=== PATIENT | female | born 1965 ===

== ENCOUNTER 2020-05-09 22:05 | Inpatient (IN) | payer MEDICAID ==
[~2020-05-09] VITALS: Ht 167.6 cm; Wt 114.0 kg
--- NOTE | 2020-05-09 22:22 | NUR ---
Pt arrives via [facility] from [facility]. Report was not given. This RN gathered information from pt and the pt's records that were left with her. Pt presents with right facial droop and right arm pronation drift and slurred speech. Pt reports these symptoms have been present since yesterday. According to records, pt got a CT scan that showed "uncertain/stroke hemorrhage"- no disk or copy of CT results brought to [place]. UTI was found at [facility] and pt was given 2g Rocephin. Pt also given lasix and morphine. Pt alert and oriented x4, acute stroke dysphagia screen passed at bedside, administered by this RN per Dr. Hawk's approval. NIH stroke scale score of 4 per this RN. Reportedly was scoring a 3 at [facility].
--- NOTE | 2020-05-09 22:26 | NUR ---
Lab at bedside.
[2020-05-09] MEDS ORDERED: SODIUM CHLORIDE FLUSH 10ML SYR IVF ONE (22:30)
--- NOTE | 2020-05-09 22:44 | NUR ---
Pt back from CT
[2020-05-09 22:54] LABS: ALANINE AMINOTRANSFERASE 30 U/L (12-78); ALBUMIN 3.2 g/dL (3.4-5.0); ANION GAP 6 mmol/L (5-15); CHLORIDE 109 mmol/L (98-107); CREATININE 0.86 mg/dL (0.55-1.02)
--- NOTE | 2020-05-09 22:59 | NUR ---
Pt hooked up to external fem cath.
[2020-05-09 23:01] LABS: ALKALINE PHOSPHATASE 127 U/L (45-117); BILIRUBIN,TOTAL 0.6 mg/dL (0.2-1.0); TOTAL PROTEIN 7.5 g/dL (6.4-8.2)
--- NOTE | 2020-05-09 23:02 | NUR ---
Pt resting, eyes closed, breathing equal and non-labored.
[2020-05-09 23:11] LABS: INTERNATIONAL NORMALIZED RATIO 1.02 (0.93-1.1); PROTHROMBIN TIME 10.9 Seconds (9.6-11.5)
[2020-05-09 23:14] LABS: MEAN CORPUSCULAR HEMOGLOBIN 32.8 pg (27.0-34.8); MEAN PLATELET VOLUME 6.7 fL (7.4-10.4); PLATELET COUNT 256 x10^3/uL (130-400); RED BLOOD COUNT 4.03 x10^6/uL (3.82-5.3); RED CELL DISTRIBUTION WIDTH 14.3 % (9.6-15.2)
[2020-05-09 23:57] LABS: MD YES
--- NOTE | 2020-05-09 23:58 | NUR ---
Pt resting, eyes closed, breathing equal and non-labored.
--- NOTE | 2020-05-09 23:58 | NUR ---
Report to DARIA Garrett.
[2020-05-10] VITALS (7 sets, daily range): BP systolic 145–169; BP diastolic 79–88
[2020-05-10 00:02] LABS: ANISOCYTOSIS 1+; BAND#(MANUAL) 0.07 x10^3/uL; BANDS%(MANUAL) 1 % (0-7); BASOS#(MANUAL) 0.07 x10^3/uL (0-0.1); BASOS% (MANUAL) 1 % (0-1); EOS% (MANUAL) 6 % (1-7); LYMPH#(MANUAL) 1.52 x10^3/uL (1-3.4); LYMPHS% (MANUAL) 23 % (22-44); MONOS#(MANUAL) 0.79 x10^3/uL (0.3-2.7); MONOS% (MANUAL) 12 % (2-9); POLYCHROMASIA 1+; REACTIVE LYMPHS # (MANUAL) 0.07 x10^3/uL (0-0); REACTIVE LYMPHS % (MANUAL) 1 % (0-0); SEGS% (MANUAL) 56 % (42-75)
[2020-05-10 00:03] LABS: <PLATELET ESTIMATE> ADEQUATE; <PLT MORPHOLOGY> NORMAL PLT MORPH; TOXIC GRAN 1+
[2020-05-10] MEDS ORDERED: PLEASE ENTER ALLERGIES MC SCH ×3 (05:00→05:30)
[2020-05-10] MEDS ORDERED: INSTRUCTION SEE COMMENTS XX ONE (05:00)
[2020-05-10] MEDS ORDERED: ENALAPRILAT 1.25 MG/ML, 2ML IV PRN (05:00)
[2020-05-10] MEDS ORDERED: LABETALOL 5MG/ML, 20ML IV PRN (05:00)
[2020-05-10] MEDS ORDERED: ACETAMINOPHEN 325 MG TABLET PO PRN (05:00)
[2020-05-10] MEDS ORDERED: POTASSIUM CHLORIDE 20 MEQ TAB.ER.PRT PO ONE ×2 (05:00→06:00)
[2020-05-10] MEDS ORDERED: ONDANSETRON 4 MG TABLET PO PRN (05:00)
[2020-05-10] MEDS ORDERED: INSULIN LISPRO 100 UNITS/ML, PEN SQ-INSULIN SCH (07:00)
[2020-05-10 07:27] LABS: FREE T4 (FREE THYROXINE) 0.1 ng/dL (0.76-1.46)
[2020-05-10] MEDS: CEFTRIAXONE PMX 2GM/50ML 50 ML IV SCH (09:27)
[2020-05-10] MEDS: INSULIN LISPRO 100 UNITS/ML, PEN SQ-INSULIN SCH ×4 (09:29→21:20)
[2020-05-10] MEDS ORDERED: LEVOTHYROXINE 100 MCG INJ IVPush ONE ×2 (12:00→12:30)
[2020-05-10] MEDS: ATORVASTATIN 40 MG TABLET PO SCH (20:44)
[2020-05-11] VITALS (7 sets, daily range): BP systolic 143–170; BP diastolic 72–92
[2020-05-11] MEDS: LEVOTHYROXINE 175 MCG TABLET PO SCH (06:06)
[2020-05-11 06:32] LABS: CHOL/HDL RATIO 3.3; LDL/HDL RATIO 1.7 (0.5-3.0)
[2020-05-11] MEDS ORDERED: MAGNESIUM HYDROXIDE 8%, 30ML UDC PO ONE (07:30)
[2020-05-11] MEDS: INSULIN LISPRO 100 UNITS/ML, PEN SQ-INSULIN SCH ×4 (08:57→20:28)
[2020-05-11] MEDS: CEFTRIAXONE PMX 2GM/50ML 50 ML IV SCH (10:29)
[2020-05-11] MEDS ORDERED: morphine SULFATE 10 MG/ML, 1ML IVPush ONE (14:30)
[2020-05-11 16:42] LABS: BASOPHILS % (AUTO) 1 % (0-1); EOSINOPHILS % (AUTO) 3 % (1-7); LYMPHOCYTES % (AUTO) 25 % (22-44); MEAN CORPUSCULAR HEMOGLOBIN 33.1 pg (27.0-34.8); MEAN PLATELET VOLUME 6.3 fL (7.4-10.4); MONOCYTES % (AUTO) 7 % (2-9); NEUTROPHILS % (AUTO) 64 % (42-75); PLATELET COUNT 209 x10^3/uL (130-400); RED BLOOD COUNT 3.86 x10^6/uL (3.82-5.3); RED CELL DISTRIBUTION WIDTH 14.1 % (9.6-15.2)
[2020-05-11 16:48] LABS: MD NO
[2020-05-11 16:54] LABS: ALANINE AMINOTRANSFERASE 27 U/L (12-78); ALBUMIN 2.8 g/dL (3.4-5.0); ANION GAP 4 mmol/L (5-15); CALCIUM 8.4 mg/dL (8.5-10.1); CHLORIDE 107 mmol/L (98-107)
[2020-05-11 16:57] LABS: ALKALINE PHOSPHATASE 110 U/L (45-117); BILIRUBIN,TOTAL 0.5 mg/dL (0.2-1.0); CREATININE 0.89 mg/dL (0.55-1.02)
[2020-05-11] MEDS ORDERED: ENALAPRILAT 1.25 MG/ML, 1ML ONE (20:20)
[2020-05-11] MEDS: ATORVASTATIN 40 MG TABLET PO SCH (20:25)
[2020-05-11] MEDS ORDERED: POLYETHYLENE GLYCOL 17 GM PACKET PO PRN (23:30)
[2020-05-12] VITALS (7 sets, daily range): BP systolic 117–166; BP diastolic 70–95
[2020-05-12] MEDS: LEVOTHYROXINE 175 MCG TABLET PO SCH (05:57)
[2020-05-12] MEDS: INSULIN LISPRO 100 UNITS/ML, PEN SQ-INSULIN SCH ×4 (07:00→20:23)
[2020-05-12] MEDS: SENNA/DOCUSATE TABLET PO SCH ×2 (07:32→08:40)
[2020-05-12] MEDS: LEVOTHYROXINE 100 MCG INJ IVPush SCH (08:39)
[2020-05-12] MEDS: CYCLOBENZAPRINE 10 MG TABLET PO SCH ×3 (11:29→20:27)
[2020-05-12] MEDS: LOSARTAN 50MG TABLET PO SCH (11:31)
[2020-05-12] MEDS ORDERED: LORazepam 2 MG/ML, 1ML IVPush ONE (12:00)
[2020-05-12] MEDS ORDERED: BISACODYL 10 MG SUPP PR ONE (12:30)
[2020-05-12 13:20] LABS: BASOPHILS % (AUTO) 1 % (0-1); EOSINOPHILS % (AUTO) 4 % (1-7); LYMPHOCYTES % (AUTO) 28 % (22-44); MD NO; MEAN CORPUSCULAR HEMOGLOBIN 32.9 pg (27.0-34.8); MEAN CORPUSCULAR HGB CONC 33.9 g/dL (32.4-35.8); MEAN PLATELET VOLUME 6.4 fL (7.4-10.4); MONOCYTES % (AUTO) 7 % (2-9); NEUTROPHILS % (AUTO) 61 % (42-75); PLATELET COUNT 216 x10^3/uL (130-400); RED BLOOD COUNT 3.94 x10^6/uL (3.82-5.3); RED CELL DISTRIBUTION WIDTH 14.1 % (9.6-15.2)
[2020-05-12 13:33] LABS: ALANINE AMINOTRANSFERASE 27 U/L (12-78); ALBUMIN 2.9 g/dL (3.4-5.0); ANION GAP 8 mmol/L (5-15); CALCIUM 8.3 mg/dL (8.5-10.1); CHLORIDE 109 mmol/L (98-107)
[2020-05-12 13:37] LABS: ALKALINE PHOSPHATASE 111 U/L (45-117); BILIRUBIN,TOTAL 0.5 mg/dL (0.2-1.0); CREATININE 0.83 mg/dL (0.55-1.02)
[2020-05-12] MEDS: CEFTRIAXONE PMX 2GM/50ML 50 ML IV SCH (15:41)
[2020-05-12] MEDS: ATORVASTATIN 40 MG TABLET PO SCH (20:27)
[2020-05-13 01:46] VITALS: BP 160/80
[2020-05-13 04:00] VITALS: BP 151/73
[2020-05-13 05:51] LABS: BASOPHILS % (AUTO) 1 % (0-1); EOSINOPHILS % (AUTO) 4 % (1-7); LYMPHOCYTES % (AUTO) 33 % (22-44); MEAN CORPUSCULAR HGB CONC 33.9 g/dL (32.4-35.8); MEAN PLATELET VOLUME 6.8 fL (7.4-10.4); MONOCYTES % (AUTO) 8 % (2-9); NEUTROPHILS % (AUTO) 55 % (42-75); PLATELET COUNT 193 x10^3/uL (130-400); RED BLOOD COUNT 3.87 x10^6/uL (3.82-5.3); RED CELL DISTRIBUTION WIDTH 14.3 % (9.6-15.2)
[2020-05-13 05:58] LABS: ALANINE AMINOTRANSFERASE 27 U/L (12-78); ALBUMIN 2.7 g/dL (3.4-5.0); ANION GAP 4 mmol/L (5-15); CALCIUM 8.4 mg/dL (8.5-10.1); CHLORIDE 112 mmol/L (98-107)
[2020-05-13 06:01] LABS: ALKALINE PHOSPHATASE 100 U/L (45-117); BILIRUBIN,TOTAL 0.4 mg/dL (0.2-1.0); CREATININE 0.77 mg/dL (0.55-1.02); MD NO; TOTAL PROTEIN 6.7 g/dL (6.4-8.2)
[2020-05-13 06:51] VITALS: BP 147/76
[2020-05-13] MEDS: INSULIN LISPRO 100 UNITS/ML, PEN SQ-INSULIN SCH (07:00)
[2020-05-13] MEDS: CYCLOBENZAPRINE 10 MG TABLET PO SCH ×4 (08:49→21:12)
[2020-05-13] MEDS: SENNA/DOCUSATE TABLET PO SCH ×2 (08:49→09:00)
[2020-05-13] MEDS: LOSARTAN 50MG TABLET PO SCH (08:49)
[2020-05-13] MEDS: LEVOTHYROXINE 100 MCG INJ IVPush SCH (09:00)
[2020-05-13] MEDS: CEFTRIAXONE PMX 2GM/50ML 50 ML IV SCH (14:19)
[2020-05-13] MEDS ORDERED: HYDROmorphone 2 MG/ML, 1ML IVPush PRN (14:30)
[2020-05-13 16:20] VITALS: BP 142/63
[2020-05-13 19:29] VITALS: BP 150/72
[2020-05-13] MEDS: ATORVASTATIN 40 MG TABLET PO SCH (21:12)
[2020-05-14 00:22] VITALS: BP 145/88
[2020-05-14 06:04] LABS: BASOPHILS % (AUTO) 1 % (0-1); EOSINOPHILS % (AUTO) 4 % (1-7); LYMPHOCYTES % (AUTO) 28 % (22-44); MEAN CORPUSCULAR HGB CONC 35.3 g/dL (32.4-35.8); MEAN PLATELET VOLUME 6.5 fL (7.4-10.4); MONOCYTES % (AUTO) 7 % (2-9); NEUTROPHILS % (AUTO) 61 % (42-75); PLATELET COUNT 218 x10^3/uL (130-400); RED BLOOD COUNT 3.97 x10^6/uL (3.82-5.3); RED CELL DISTRIBUTION WIDTH 14.4 % (9.6-15.2)
[2020-05-14 06:11] LABS: ALBUMIN 2.8 g/dL (3.4-5.0); ANION GAP 7 mmol/L (5-15); CALCIUM 8.2 mg/dL (8.5-10.1); CHLORIDE 112 mmol/L (98-107)
[2020-05-14 06:16] LABS: ALANINE AMINOTRANSFERASE 25 U/L (12-78); ALKALINE PHOSPHATASE 105 U/L (45-117); BILIRUBIN,TOTAL 0.5 mg/dL (0.2-1.0); CREATININE 0.85 mg/dL (0.55-1.02)
[2020-05-14 06:27] LABS: MD NO
[2020-05-14 07:00] VITALS: BP 130/80
[2020-05-14] MEDS ORDERED: FUROSEMIDE 20 MG/2 ML IV ONE (07:00)
[2020-05-14] MEDS: SENNA/DOCUSATE TABLET PO SCH (08:17)
[2020-05-14] MEDS: LOSARTAN 50MG TABLET PO SCH (08:17)
[2020-05-14] MEDS: LEVOTHYROXINE 100 MCG INJ IVPush SCH (08:17)
[2020-05-14] MEDS: CYCLOBENZAPRINE 10 MG TABLET PO SCH ×2 (08:18→16:19)
[2020-05-14 12:19] VITALS: BP 121/73
[2020-05-14] MEDS ORDERED: LEVO175T2 PO (12:21)
[2020-05-14] MEDS ORDERED: LOSA50TA2 PO (12:21)
[2020-05-14] MEDS ORDERED: ATOR40TA78 PO (12:21)
[2020-05-14] MEDS ORDERED: CYCL5TAB PO (12:21)
[2020-05-14] MEDS: CEFTRIAXONE PMX 2GM/50ML 50 ML IV SCH (14:13)
[2020-05-14] MEDS: GABAPENTIN 300 MG CAPSULE PO SCH ×2 (14:13→16:19)
[2020-05-14] MEDS ORDERED: GABA300C PO (14:49)
== END 2020-05-14 18:07 | disposition home or self-care (01) | DRG 44 ==
LOC: ED 22:35 → EDIP 05-10 01:25 → 4EST 05-10 01:29
PROVIDERS: ADMIT Family Medicine; ATTEND Hospitalist
DX: I61.9 Nontraumatic intracerebral hemorrhage, unspecified (principal); E03.2 Hypothyroidism due to medicaments and other exogenous substances; E11.41 Type 2 diabetes mellitus with diabetic mononeuropathy; E66.9 Obesity, unspecified; Z68.41 Body mass index [BMI] 40.0-44.9, adult; E87.6 Hypokalemia; F15.10 Other stimulant abuse, uncomplicated; F17.200 Nicotine dependence, unspecified, uncomplicated; G89.29 Other chronic pain; I10 Essential (primary) hypertension; Z59.0 Homelessness; Z66 Do not resuscitate; Z92.3 Personal history of irradiation; Z91.19 Patient's noncompliance with other medical treatment and regimen; Z82.49 Family history of ischemic heart disease and other diseases of the circulatory system; Z79.84 Long term (current) use of oral hypoglycemic drugs; K59.09 Other constipation; M41.9 Scoliosis, unspecified; N30.90 Cystitis, unspecified without hematuria; I69.392 Facial weakness following cerebral infarction; E11.40 Type 2 diabetes mellitus with diabetic neuropathy, unspecified; M54.9 Dorsalgia, unspecified
CPT/HCPCS: 36415; 70450; 74018; 80053; 80061; 82962; 83036; 83735; 83880; 84145; 84439; 84443; 84484; 85025; 85610; 85730; 93005; 93306; 93356; 93880; 93970; 96374; 96375; 99291; G0378; J0696; 92522-GN; J1815; J1940; J2060; J2270